=== PATIENT | female | born 1950 | race Caucasian/White ===

== ENCOUNTER → 2021-02-19 09:41 | Outpatient (CLI) | payer MEDICARE, BC, SELFPAY ==
[2021-02-19 12:04] LABS: COVID19 -Nasal RAPID Negative (Negative)
== END ==
PROVIDERS: PCP Physician Assistant; Referring Provider Nurse Practitioner Family; Visit Provider Nurse Practitioner Family
DX: Z20.822 Contact with and (suspected) exposure to COVID-19 (principal); Z01.812 Encounter for preprocedural laboratory examination
CPT/HCPCS: 87635; C9803

== ENCOUNTER 2021-02-21 10:27 | Day surgery (SDC) | payer MEDICARE, BC, SELFPAY ==
--- NOTE | 2021-02-20 18:48 | PM.PREOP ---
Pre-operative Note COVID-19 COVID-19 status: Negative Interval Note History & Physical reviewed/Exam performed by Physician: Yes Changes to H&P: No H&P completed within 30 days and has changed as indicated here:: Elevated blood pressure today will be treated by Anesthesia as needed.
--- NOTE | 2021-02-20 18:49 | PM.OP.1 ---
Operative Date/Time/Diagnoses Date of procedure: 02/21/21 Time of procedure: 11:45 Procedure & Clinicians Procedure: Preoperative diagnoses: 1. Right complex nuclear sclerotic and cortical cataract. 2. Tremor 3. Hypertension 4. Thyroid disorder Postoperative diagnoses: 1. Right complex Cataract removed by phacoemulsification with placement of posterior chamber intraocular lens. Capsular dye used. Procedure: Phacoemulsification with posterior chamber intraocular lens implant Surgeon: Zolia Jaramillo MD Complications: None Specimen: None Implant: [id number] Blood loss: None Anesthesia: Retrobulbar with monitored standby Description of procedure: Patient presents with a complaint of decreased vision due to cataract which is affecting activities of daily living for driving and for reading The patient wants surgery to improve vision. She elects a distance target. She is not very nervous and her blood pressure is elevated today. The patient was taken to the operating room and given IV sedation. A retrobulbar block consisting of 6 cc of 2% xylocaine without epinephrine mixed half and half with 0.5% Marcaine with 1 cc of hyaluronidase added is placed between the medial and lateral 1/3 of the inferior orbital rim. The eye is manually massaged for 30 sec, prepped using Betadine solution, and draped in the usual sterile fashion. Temporal approach was made, a 1 mm side-port incision was made 90? from the proposed clear corneal incision position. Phenylephrine 1.5% mixed with 1% xylocaine 0.2 cc was placed into the anterior chamber. Due to dense cataract with poor red reflex Vision Blue dye was placed in the anterior chamber under the air bubble. The air was then irrigated out. Endocoat followed by Bailee was then placed. A 2.6 mm clear incision with a 2.6 mm blade was placed. A 360 degree capsulorrhexis style capsulotomy was then performed with a cystitome needle on a Healon greatly aided by the capsular dye Hydrodelineation and hydrodissection were performed. The phacoemulsification unit is introduced, and sculpting notice used to groove the central lens. It is then removed in chopping mode. Epi nucleus is removed with epinuclear mode and irrigation aspiration was used to remove the peripheral cortex. The posterior capsule is polished. The intraocular lens is selected, inspected, power confirmed, and placed in the posterior chamber. The wound was stromally hydrated and tested for leaks, there was none and it was left sutureless. Vigamox 0.1 cc was placed into the anterior chamber. Kenalog 0.2 cc was placed in the superior subconjunctival space. A drop of antibiotic and was placed and the eye was patched and shielded. The patient was stable and returned to the recovery room in excellent condition. Dictated by: Zoila Jaramillo MD Copy to: [facility] Same procedure as scheduled: Yes
[2021-02-21] MEDS: PROPARACAINE 0.5% OPHTH SOL 2 DROPS EYE-OP (10:47)
[2021-02-21] MEDS: CATARACT EYE COMPOUND (10 DROPS/SYRINGE) 3 DROPS EYE-OP (10:48)
[2021-02-21 10:50] VITALS: BP 192/95; PULSE 76; RESP 18; TEMP 36.6; O2SAT 100; BMI 30.2
[2021-02-21 11:27] VITALS: BP 183/102
--- NOTE | 2021-02-21 13:11 | SUR.OPER ---
Supine on eye stretcher, head on extension cradle secured with tape. Arms tucked at sides with blanket. Pillow under knees.
--- NOTE | 2021-02-21 13:13 | SUR.OPER ---
Supine on eye stretcher, head on extension cradle secured with tape. Arms tucked at sides with blanket. Pillow under knees.
[2021-02-21] MEDS: HYALURONATE SODIUM 30 MG-10 MG/ML SYRINGES 1 BOX INTRAOCULA (13:19)
[2021-02-21] MEDS: TRYPAN BLUE 0.5 ML SYRINGE INJ (13:19)
[2021-02-21] MEDS: MOXIFLOXACIN INJ 4 MG/0.8 ML VIAL 0.5 MG EYE-OP (13:19)
[2021-02-21] MEDS: TRIAMCINOLONE 50 MG/5 ML VIAL INJ (13:20)
[2021-02-21] MEDS: PHENYLEPHRINE/LIDOCAINE VIAL (OR) 0.2 ML EYE-OP (13:20)
[2021-02-21] MEDS: BALANCED SALT IRRIG SOLN NO.2 500 ML, EPINEPHrine 1 MG IRR (13:21)
[2021-02-21] MEDS: LIDOCAINE 2% 4 ML, BUPIVACAINE 0.5% (PF) 4 ML, HYALURONIDASE 150 UNIT INJ (13:21)
[2021-02-21] MEDS: ERYTHROMYCIN OPHTH 1 GM OINT 1 APPLIC EYE-RIGHT (13:22)
[2021-02-21 13:45] VITALS: BP 189/112; PULSE 63; RESP 18; TEMP 37; O2SAT 99
== END 2021-02-21 14:00 | disposition home or self-care (01) ==
LOC: OR 10:29
PROVIDERS: PCP Physician Assistant; Referring Provider Ophthalmology; Visit Provider Ophthalmology
PROC: (CPT 66984; principal; 2021-02-21 11:45)
DX: H25.811 Combined forms of age-related cataract, right eye (principal); I10 Essential (primary) hypertension; R25.1 Tremor, unspecified; E78.00 Pure hypercholesterolemia, unspecified; R42 Dizziness and giddiness
CPT/HCPCS: 66984; J0171; J3301; J3470

== ENCOUNTER → 2021-03-05 09:15 | Outpatient (CLI) | payer MEDICARE, BC, SELFPAY ==
[2021-03-05 15:18] LABS: COVID19 -Nasal RAPID Negative (Negative)
== END ==
PROVIDERS: PCP Physician Assistant; Referring Provider Nurse Practitioner Family; Visit Provider Nurse Practitioner Family
DX: Z20.822 Contact with and (suspected) exposure to COVID-19 (principal); Z01.812 Encounter for preprocedural laboratory examination
CPT/HCPCS: 87635

== ENCOUNTER 2021-03-07 06:20 | Day surgery (SDC) | payer MEDICARE, BC, SELFPAY ==
[2021-03-07] MEDS: PROPARACAINE 0.5% OPHTH SOL 2 DROPS EYE-OP (07:10)
--- NOTE | 2021-03-07 07:14 | PM.PREOP ---
Pre-operative Note COVID-19 COVID-19 status: Negative Interval Note History & Physical reviewed/Exam performed by Physician: Yes Changes to H&P: No H&P completed within 30 days and has changed as indicated here:: Elevated blood pressure today due to anxiety. Will have anesthesia medicate as needed during surgery.
--- NOTE | 2021-03-07 07:15 | PM.OP.1 ---
Operative Date/Time/Diagnoses Date of procedure: 02/28/21 Time of procedure: 07:45 Procedure & Clinicians Procedure: Preoperative diagnoses: 1. Complex Left significant advanced nuclear sclerotic and cortical cataract. Poor red reflex 2. Anxiety disorder 3. Hypertension 4. Tremor Postoperative diagnoses: 1. Complex Cataract removed by phacoemulsification with placement of posterior chamber intraocular lens. Capsular dye used Procedure: Phacoemulsification with posterior chamber intraocular lens implant Surgeon: Zoila Jaramillo MD Complications: None Specimen: None Implant:[id number]+15.0 Blood loss: None Anesthesia: Retrobulbar with monitored standby Description of procedure: Patient presents with a complaint of decreased vision due to cataract which is affecting activities of daily living especially for driving and reading. The patient wants surgery to improve vision. She has had successful cataract surgery in her right eye. She does have an anxiety disorder with elevated blood pressure from stress the day of surgery which will be controlled as needed during the procedure. She understands the extra risk of surgery during the COVID-19 epidemic and wishes to proceed. She has tested negative for active virus within 72 hours of the procedure. The patient was taken to the operating room and given IV sedation. A retrobulbar block consisting of 6 cc of 2% xylocaine without epinephrine mixed half and half with 0.5% Marcaine with 1 cc of hyaluronidase added is placed between the medial and lateral 1/3 of the inferior orbital rim. The eye is manually massaged for 30 sec, prepped using Betadine solution, and draped in the usual sterile fashion. Temporal approach was made, a 1 mm side-port incision was made 90? from the proposed clear corneal incision position. Phenylephrine 1.5% mixed with 1% xylocaine 0.2 cc was placed into the anterior chamber. She had a poor red reflex and dense nuclear changes so was felt best to use vision blue. An air bubble was placed in capsular dye was placed on the anterior capsule. The air was then irrigated out. Endocoat followed by Bailee was then placed. A 2.6 mm clear incision with a 2.6 mm blade was placed. A 360 degree capsulorrhexis style capsulotomy was then performed with a cystitome needle on a Healon greatly assisted by the capsular dye Hydrodelineation and hydrodissection were performed. The phacoemulsification unit is introduced, and sculpting notice used to groove the central lens. It is then removed in chopping mode. Epi nucleus is removed with epinuclear mode and irrigation aspiration was used to remove the peripheral cortex. The posterior capsule is polished. The intraocular lens is selected, inspected, power confirmed, and placed in the posterior chamber. The wound was stromally hydrated and tested for leaks, there was none and it was left sutureless. Vigamox 0.1 cc was placed into the anterior chamber. Kenalog 0.2 cc was placed in the superior subconjunctival space. A drop of antibiotic and was placed and the eye was patched and shielded. The patient was stable and returned to the recovery room in excellent condition. Dictated by: Zoila Jaramillo MD Copy to: [facility] Same procedure as scheduled: Yes
[2021-03-07] MEDS: CATARACT EYE COMPOUND (10 DROPS/SYRINGE) 3 DROPS EYE-OP (07:16)
[2021-03-07 07:22] VITALS: BP 195/103; PULSE 83; RESP 16; TEMP 36.6; O2SAT 99; BMI 30.2
[2021-03-07] MEDS: LIDOCAINE 2% 4 ML, BUPIVACAINE 0.5% (PF) 4 ML, HYALURONIDASE 150 UNIT INJ (07:49)
--- NOTE | 2021-03-07 08:06 | SUR.OPER ---
Supine on eye stretcher, head on extension cradle and foam donut then secured with tape. Arms tucked at sides with blanket. Pillow under knees.
[2021-03-07] MEDS: TRYPAN BLUE 0.5 ML SYRINGE INJ (08:09)
[2021-03-07] MEDS: ERYTHROMYCIN OPHTH 1 GM OINT 1 APPLIC EYE-LEFT (08:10)
[2021-03-07] MEDS: HYALURONATE SODIUM 30 MG-10 MG/ML SYRINGES 1 BOX INTRAOCULA (08:10)
[2021-03-07] MEDS: PHENYLEPHRINE/LIDOCAINE VIAL (OR) 0.2 ML EYE-OP (08:10)
[2021-03-07] MEDS: MOXIFLOXACIN INJ 4 MG/0.8 ML VIAL 0.5 MG EYE-OP (08:10)
[2021-03-07] MEDS: BALANCED SALT IRRIG SOLN NO.2 500 ML, EPINEPHrine 1 MG IRR (08:11)
[2021-03-07] MEDS: TRIAMCINOLONE 50 MG/5 ML VIAL INJ (08:11)
[2021-03-07 08:40] VITALS: BP 208/101; PULSE 66; RESP 18; TEMP 36.5; O2SAT 100
== END 2021-03-07 09:05 | disposition home or self-care (01) ==
PROVIDERS: PCP Physician Assistant; Referring Provider Ophthalmology; Visit Provider Ophthalmology
PROC: (CPT 66984; principal; 2021-03-07 07:45)
DX: H25.812 Combined forms of age-related cataract, left eye (principal); F41.9 Anxiety disorder, unspecified; I10 Essential (primary) hypertension; R25.1 Tremor, unspecified
CPT/HCPCS: 66984; J0171; J2704; J3301; J3470